=== PATIENT | female | born 1960 | race Caucasian/White ===

== ENCOUNTER → 2018-09-07 | Outpatient (CLI) | payer BC ==
[~2018-09-07] MED LIST: ARTHRITIS PAIN650 M3 PO; ASPIRIN CHEWABL81 MG PO; AZITHROMYC1 GM/PACKE PO; CARTIA XT240 MG PO; CELEBREX400 M1 PO; CLARITIN10 MG PO; DILTIAZEM60 MG PO; EFFEXOR XR150 M1 PO; FLUOXETINE90 MG PO; KEPPRA500 MG PO; LEVOTHYROXIN0.125 MG PO; LEVOTHYROXINE50 MCG PO; LISINOPRIL20 MG PO; MELOXICAM7.5 MG PO; PREDNISONE20 M1 PO; PROZAC20 MG PO; RA CALCIUM CIT PO; SIMVASTATIN10 MG PO; VENLAFAXINE75 M1 PO; VITAMIN C500 M8 PO; VITAMIN D32000 UNIT PO; ZESTORETIC 20-1 EACH PO; ZOCOR40 MG PO
== END | disposition home or self-care (01) ==
LOC: MAMMO 13:32
DX: Z12.31 Encounter for screening mammogram for malignant neoplasm of breast (principal)

== ENCOUNTER 2019-02-11 06:04 | Inpatient (IN) | payer BC ==
[2019-02-11] VITALS (9 sets, daily range): BP systolic 122–134; BP diastolic 70–92
[~2019-02-11] VITALS: Ht 165.1 cm; Wt 75.4 kg
--- NOTE | ~2019-02-11 | WRIGHTHP ---
[place], [place] PATIENT HISTORY AND PHYSICAL EXAM [id number] UNIT #: [id number] ROOM: 422 DOCTOR: TAY COLLINS MD BIRTHDATE: [birth year] DOS: 02/12/2019 HISTORY OF PRESENT ILLNESS: The patient has been admitted to the hospital with history of seizure disorder at home. The patient was getting ready to go to her work and she has possibly seizure and found by her on the floor and called them. She was brought to the Emergency Department. She has been admitted with history of seizure disorder of new onset. The patient never had any seizures before. The patient is not complaining of any headache. No difficulty in breathing, no nausea, no vomiting, no weakness in any part of her body. She is conscious, alert, and oriented at present. ALLERGIES: The patient is allergic to SULFA and AMOXICILLIN. MEDICATIONS: The patient is taking following medications: Levothyroxine 50 mcg daily, ascorbic acid 500 mg daily, meloxicam 7.5 mg daily, Zocor 40 mg daily, Prozac 20 mg daily, Effexor XR 150 mg daily, diltiazem 240 mg daily, calcium tablet and vitamin D twice daily, aspirin 1 tablet daily. PAST MEDICAL HISTORY: Acute bronchitis, past history of cancer of the uterus for which she has undergone hysterectomy, salpingo-oophorectomy, total hysterectomy. SOCIAL HISTORY: The patient drinking quite a lot. She has been advised in the past by me to stop drinking, but she continued. She does not use any drugs except alcohol. She does not smoke. PHYSICAL EXAMINATION: GENERAL: The patient is conscious, alert and oriented, not in any distress at present. VITAL SIGNS: Blood pressure 152/93, pulse 75, respirations 16, temperature 97.7. HEENT: Unremarkable. No facial palsy. Carotid pulses normal. NECK: Veins are not distended. HEART: Regular, no murmur. LUNGS: Clear. No creps or rhonchi. ABDOMEN: Soft. Liver and spleen not palpable. No area of tenderness, no mass palpated. EXTREMITIES: No edema of leg. The patient can move all the 4 limbs without any problem. NEUROLOGIC: No neurological deficit observed. LABORATORY DATA: Her comprehensive metabolic profile on admission showed chloride 111, calcium 7.8. Other values are normal. Troponin level is normal. Lactic acid was 5.5, which was high. CT of the brain shows no evidence of any acute intracranial abnormalities. Chest x-ray was normal. Protime was 10.5. Ethanol level is 43. Ionized calcium was 4.43, slightly low. Lactic acid repeat was 1.3. Vitamin B12 was 212, folic acid 7.86. PTH was 101.01, high. Vitamin D is 47.3. Urine examination showed 1+ blood, 3+ bacteria, indicating urinary tract infection. Urine for drug screening was negative. Repeat CBC showed white count 9900, hemoglobin 11.5, hematocrit 35.2 and MCV 101.1, which [place], [place] PATIENT HISTORY AND PHYSICAL EXAM NAME: ROBERTH MUSA UNIT #: [id number] ROOM: [facility] DOCTOR: TAY COLLINS MD BIRTHDATE: [birth year] was high. MCH 33, which was high, indicating effect of alcohol. Repeat comprehensive metabolic profile showed potassium 2.9, chloride 1.8, calcium 8.2. TSH level is normal. Repeat B12 level is normal. DIAGNOSES: Seizure disorder, new onset, possible to alcohol withdrawal effect is present, arteriosclerotic heart disease, hypertension, hyperlipidemia, hypothyroidism, arthritis and potassium deficiency. PLAN OF TREATMENT: The patient will be observed carefully. She will be started on home medication, started on thiamine 100 mg daily, heparin 40 mg subcutaneous, hydrochlorothiazide 12.5 mg ____ 150 mg daily, lisinopril 20 mg daily, Prozac 20 mg daily, diltiazem CD 240 mg daily, vitamin D 2000 units daily, calcium carbonate 1 tablet twice daily, aspirin 81 mg daily, ascorbic acid 500 mg daily, levetiracetam 500 mg twice daily, simvastatin 40 mg daily, lorazepam 1 mg every 6 hours p.r.n., sodium chloride, multivitamin once a day, thiamine 100 mg daily, folic acid 1 mg daily and the patient's potassium is low, so I will start her on some potassium tablet ____ mEq daily. TAY COLLINS MD CM:HISPHYS:PATIENT HISTORY AND PHYSICAL EXAMINATION [id number] TAY COLLINS MD 02/12/19 1156 interface
--- NOTE | ~2019-02-11 | EKG ---
[place], [place] ELECTROCARDIOGRAM REPORT NAME: ROBERTH MUSA UNIT #: [id number] ROOM: 422 DOCTOR: ABDIRIZAK DRAFT REPORT BIRTHDATE: [birth year] [facility] Test Date: 2019-02-11 Test Time: 06:38:02 Pat Name: ROBERTH MUSA Department: Room: 422 Gender: F [employer]ing Officer: MARY : 1960 Requested By: ANUSHAK ROBERTS Order Number: [id number] Reading MD: Darryl Funes Measurements Intervals [place] Rate: 114 P: 72 [place]: 143 QRS: 67 QRSD: 91 T: -7 QT: 364 QTc: 502 Interpretive Statements Sinus tachycardia Borderline T abnormalities, inferior leads Borderline prolonged QT interval Electronically Signed On 02-12-2019 9:02:05 PDT by Darryl Funes CM:EKGRPT:ELECTROCARDIOGRAM REPORT [id number] ANUSHKA REVELES DRAFT REPORT ANUSHKA ROBERTS MD
[~2019-02-11 06:04] MED LIST changes: -ARTHRITIS PAIN650 M3 PO; -ASPIRIN CHEWABL81 MG PO; -CARTIA XT240 MG PO; -CELEBREX400 M1 PO; -EFFEXOR XR150 M1 PO; -KEPPRA500 MG PO; -LEVOTHYROXINE50 MCG PO; -MELOXICAM7.5 MG PO; -PROZAC20 MG PO; -RA CALCIUM CIT PO; -VENLAFAXINE75 M1 PO; -VITAMIN C500 M8 PO; -VITAMIN D32000 UNIT PO; -ZESTORETIC 20-1 EACH PO; -ZOCOR40 MG PO
[2019-02-11 06:33] LABS: BASO % 0.3 % (0.0-1.0); HEMATOCRIT 38.3 % (37.0-47.0); HEMOGLOBIN 12.7 g/dl (12.0-16.0); LYMPH % 12.6 % (27.0-41.0); MEAN CELL VOLUME 102.1 fl (81.0-99.0); MEAN CORPUSCULAR HGB 33.9 pg (27.0-31.0); MEAN CORPUSCULAR HGB CONC 33.2 g/dl (33.0-37.0); MEAN PLATELET VOLUME 9.7 fl (9.6-12.3); MONO # 0.3 10*3/uL (0.1-1.0); MONO % 4.2 % (3.0-9.0); NEUT # 6.3 10*3/uL (2.3-7.9); NEUT % 82.4 % (47.0-73.0); PLATELET COUNT AUTOMATED 379 10*3/uL (130-400); RED BLOOD COUNT 3.75 10*6/uL (4.10-5.10); RED CELL DISTRI WIDTH 14.5 % (0-14.5); WHITE BLOOD COUNT 7.7 10*3/uL (4.8-10.8)
[2019-02-11] MEDS ORDERED: LEVOTHYROXINE50 MCG PO (06:39)
[2019-02-11 06:48] LABS: ACT PARTIAL THROMBO TIME 23.1 SECONDS (20.0-32.1); INTERNATIONAL NORM RATIO 0.9 (2.0-3.5)
[2019-02-11 06:52] LABS: ALBUMIN 3.9 gm/dl (3.1-4.5); ALKALINE PHOSPHATASE 83 U/L (45-117); BUN 17 mg/dl (7-24); CHLORIDE 111 mmol/L (98-107); CREATININE 0.76 mg/dL (0.55-1.02); POTASSIUM 3.8 mmol/L (3.5-5.1); SGOT/AST 29 IU/L (3-35); SGPT/ALT 36 U/L (12-78); SODIUM 144 mmol/L (136-145); TOTAL PROTEIN 7.5 gm/dL (6.4-8.2)
[2019-02-11 06:53] LABS: TROPONIN I < 0.015 ng/ml (<0.045)
[2019-02-11] MEDS ORDERED: VITAMIN C500 M8 PO (06:55)
[2019-02-11] MEDS ORDERED: MELOXICAM7.5 MG PO (06:55)
[2019-02-11] MEDS ORDERED: PROZAC20 MG PO (06:56)
[2019-02-11] MEDS ORDERED: ZOCOR40 MG PO (06:56)
[2019-02-11] MEDS ORDERED: EFFEXOR XR150 M1 PO (06:56)
[2019-02-11] MEDS ORDERED: CARTIA XT240 MG PO (06:57)
[2019-02-11] MEDS ORDERED: VENLAFAXINE75 M1 PO (06:57)
[2019-02-11] MEDS ORDERED: RA CALCIUM CIT PO (06:58)
[2019-02-11] MEDS ORDERED: ASPIRIN CHEWABL81 MG PO (06:58)
[2019-02-11] MEDS ORDERED: VITAMIN D32000 UNIT PO (06:59)
[2019-02-11] MEDS ORDERED: ZESTORETIC 20-1 EACH PO (07:00)
[2019-02-11] MEDS ORDERED: ARTHRITIS PAIN650 M3 PO (07:00)
[2019-02-11] MEDS ORDERED: CELEBREX400 M1 PO (07:01)
[2019-02-11 10:45] LABS: VITAMIN D, 25-HYDROXY 47.3 ng/mL (30-100)
[2019-02-11 10:46] LABS: PTH INTACT 101.1 pg/mL (18.5-88.0)
[2019-02-11 11:51] LABS: BILIRUBIN NEGATIVE (NEGATIVE); BLOOD 1+ (NEGATIVE); CLARITY CLOUDY (CLEAR); COLOR YELLOW (YELLOW); GLUCOSE NEGATIVE (NEGATIVE); KETONE TRACE (NEGATIVE); LEUKO ESTERASE TRACE (NEGATIVE); NITRITE POSITIVE (NEGATIVE); PH 5.5 (5.0-9.0); SPECIFIC GRAVITY >= 1.030 (1.005-1.030); UROBILINOGEN 0.2 E.U./dl (0.2-1.0)
[2019-02-11 11:58] LABS: BACTERIA 3+; EPITHELIAL CELLS 31-40; MUCOUS 1+; RBC 21-30 rbc/hpf (0-2); WBC 16-20 wbc/hpf (0-5)
[2019-02-11 11:59] LABS: URINE AMPHETAMINES < 1000 (1000ng/ml); URINE BARBITURATES < 200 (200ng/ml); URINE BENZODIAZEPINES < 200 (200ng/ml); URINE CANNABINOIDS (THC) < 50 (50ng/ml); URINE COCAINE < 300 (300ng/ml); URINE METHADONE < 300 (300ng/ml); URINE OPIATES < 300 (300ng/ml)
[2019-02-11 12:01] LABS: URINE PHENCYCLIDINE < 25 (25ng/ml)
[2019-02-12] VITALS: BP 122/97
[2019-02-12 06:25] VITALS: BP 132/80
[2019-02-12 07:02] LABS: BASO % 0.3 % (0.0-1.0); EOS % 0.3 % (1.0-4.0); HEMATOCRIT 35.2 % (37.0-47.0); HEMOGLOBIN 11.5 g/dl (12.0-16.0); LYMPH % 20.1 % (27.0-41.0); MEAN CELL VOLUME 101.1 fl (81.0-99.0); MEAN CORPUSCULAR HGB CONC 32.7 g/dl (33.0-37.0); MEAN PLATELET VOLUME 9.5 fl (9.6-12.3); MONO # 0.9 10*3/uL (0.1-1.0); NEUT # 6.9 10*3/uL (2.3-7.9); NEUT % 69.9 % (47.0-73.0); PLATELET COUNT AUTOMATED 323 10*3/uL (130-400); RED BLOOD COUNT 3.48 10*6/uL (4.10-5.10); RED CELL DISTRI WIDTH 14.8 % (0-14.5); WHITE BLOOD COUNT 9.9 10*3/uL (4.8-10.8)
[2019-02-12 07:32] LABS: ALBUMIN 3.4 gm/dl (3.1-4.5); ALKALINE PHOSPHATASE 73 U/L (45-117); BUN 13 mg/dl (7-24); CHLORIDE 108 mmol/L (98-107); CREATININE 0.62 mg/dL (0.55-1.02); POTASSIUM 2.9 mmol/L (3.5-5.1); SGOT/AST 33 IU/L (3-35); SGPT/ALT 32 U/L (12-78); SODIUM 139 mmol/L (136-145); TOTAL PROTEIN 6.8 gm/dL (6.4-8.2)
[2019-02-12 08:00] VITALS: BP 152/93
[2019-02-12 12:00] VITALS: BP 110/70
[2019-02-12 16:16] VITALS: BP 134/85
[2019-02-12 20:00] VITALS: BP 136/89
[2019-02-13] VITALS: BP 134/82
[2019-02-13 08:00] VITALS: BP 133/84
[2019-02-13 12:00] VITALS: BP 127/76
[2019-02-13 14:58] LABS: BUN 8 mg/dl (7-24); CHLORIDE 101 mmol/L (98-107); CREATININE 0.69 mg/dL (0.55-1.02); POTASSIUM 3.5 mmol/L (3.5-5.1); SODIUM 134 mmol/L (136-145)
[2019-02-13 16:00] VITALS: BP 117/70
[2019-02-13 20:00] VITALS: BP 143/46
[2019-02-14] VITALS: BP 133/83
[2019-02-14 06:37] LABS: BUN 11 mg/dl (7-24); CHLORIDE 104 mmol/L (98-107); CREATININE 0.68 mg/dL (0.55-1.02); POTASSIUM 3.8 mmol/L (3.5-5.1); SODIUM 136 mmol/L (136-145)
[2019-02-14 08:00] VITALS: BP 130/80
[2019-02-14 12:00] VITALS: BP 110/73
[2019-02-14 16:00] VITALS: BP 105/70
[2019-02-14 20:00] VITALS: BP 106/57
[2019-02-15] VITALS: BP 118/69
[2019-02-15 07:05] LABS: BASO % 0.4 % (0.0-1.0); EOS # 0.4 10*3/uL (0.0-0.4); EOS % 4.6 % (1.0-4.0); HEMATOCRIT 39.9 % (37.0-47.0); HEMOGLOBIN 13.4 g/dl (12.0-16.0); LYMPH # 1.7 10*3/uL (1.3-4.4); LYMPH % 17.5 % (27.0-41.0); MEAN CELL VOLUME 100.3 fl (81.0-99.0); MEAN CORPUSCULAR HGB 33.7 pg (27.0-31.0); MEAN CORPUSCULAR HGB CONC 33.6 g/dl (33.0-37.0); MONO # 0.9 10*3/uL (0.1-1.0); MONO % 9.8 % (3.0-9.0); NEUT # 6.5 10*3/uL (2.3-7.9); NEUT % 67.3 % (47.0-73.0); PLATELET COUNT AUTOMATED 364 10*3/uL (130-400); RED BLOOD COUNT 3.98 10*6/uL (4.10-5.10); RED CELL DISTRI WIDTH 14.4 % (0-14.5); WHITE BLOOD COUNT 9.6 10*3/uL (4.8-10.8)
[2019-02-15 07:22] LABS: BUN 14 mg/dl (7-24); CHLORIDE 103 mmol/L (98-107); CREATININE 0.76 mg/dL (0.55-1.02); POTASSIUM 3.8 mmol/L (3.5-5.1); SODIUM 136 mmol/L (136-145)
[2019-02-15 08:00] VITALS: BP 116/70
[2019-02-15 12:00] VITALS: BP 112/72
[2019-02-15] MEDS ORDERED: KEPPRA500 MG PO (13:54)
== END 2019-02-15 14:30 | disposition home or self-care (01) | DRG 101 ==
LOC: ED 06:04 → EDHOLD 07:45 → 4E 07:45
PROVIDERS: Emergency Medicine; Emergency Medicine Emergency Medical Services; Internal Medicine Nephrology; ADMIT Internal Medicine
DX: G40.509 Epileptic seizures related to external causes, not intractable, without status epilepticus (principal); N39.0 Urinary tract infection, site not specified; R47.01 Aphasia; F10.239 Alcohol dependence with withdrawal, unspecified; E03.9 Hypothyroidism, unspecified; E78.5 Hyperlipidemia, unspecified; M19.90 Unspecified osteoarthritis, unspecified site; E87.6 Hypokalemia; E83.51 Hypocalcemia; E53.8 Deficiency of other specified B group vitamins; B96.20 Unspecified Escherichia coli [E. coli] as the cause of diseases classified elsewhere; Z88.2 Allergy status to sulfonamides; Z88.1 Allergy status to other antibiotic agents; Z90.710 Acquired absence of both cervix and uterus; Z90.721 Acquired absence of ovaries, unilateral

== ENCOUNTER → 2019-03-14 | Outpatient (CLI) | payer BC ==
[~2019-03-14] MED LIST changes: +ARTHRITIS PAIN650 M3 PO; +ASPIRIN CHEWABL81 MG PO; +CARTIA XT240 MG PO; +CELEBREX400 M1 PO; +EFFEXOR XR150 M1 PO; +KEPPRA500 MG PO; +LEVOTHYROXINE50 MCG PO; +MELOXICAM7.5 MG PO; +PROZAC20 MG PO; +RA CALCIUM CIT PO; +VENLAFAXINE75 M1 PO; +VITAMIN C500 M8 PO; +VITAMIN D32000 UNIT PO; +ZESTORETIC 20-1 EACH PO; +ZOCOR40 MG PO
--- NOTE | ~2019-03-14 | EEG ---
[place], [place] ELECTROENCEPHALOGRAM REPORT NAME: ROBERTH MUSA UNIT #: [id number] ROOM: DOCTOR: WILDA PATRICIA MD, JR DOS: 03/14/2019 This 58-year-old woman, on levothyroxine, meloxicam, simvastatin, fluoxetine, Effexor, diltiazem, aspirin, and Keppra, displayed the following underlying rhythms -- well organized, synchronous, 20 Hz, 10 microvolt beta rhythms in both anterior and posterior regions. In addition, 10 Hz, 20 microvolt alpha rhythms are noted in both posterior regions. There was symmetrical attenuation of the posterior alpha rhythms with eye opening. Two minutes of poor hyperventilation produced no abnormalities. There was no driving to photic stimulation. The patient did not fall asleep throughout this recording. The patient spent most of her time in this tracing and beta rhythms. Throughout this tracing, there were no focal abnormalities or epileptiform discharges. IMPRESSION: Normal awake EEG. WILDA PATRICIA MD CM:EEG:ELECTROENCEPHALOGRAM REPORT [id number] WLIDA PATRICIA MD, JR
== END | disposition home or self-care (01) ==
LOC: CP 12:00
DX: G40.909 Epilepsy, unspecified, not intractable, without status epilepticus (principal)

== ENCOUNTER 2020-04-26 15:22 | Emergency (ER) | payer BC ==
[~2020-04-26] VITALS: Ht 162.5 cm; Wt 72.6 kg
[2020-04-26] MEDS ORDERED: NORCO 5-325 TA1 EACH PO (17:03)
== END 2020-04-26 17:58 | disposition home or self-care (01) ==
LOC: ED 15:22
DX: S52.532A Colles' fracture of left radius, initial encounter for closed fracture (principal); S93.402A Sprain of unspecified ligament of left ankle, initial encounter; I10 Essential (primary) hypertension; F17.200 Nicotine dependence, unspecified, uncomplicated; Z88.2 Allergy status to sulfonamides; Z88.8 Allergy status to other drugs, medicaments and biological substances; Z79.899 Other long term (current) drug therapy; Z79.82 Long term (current) use of aspirin; X58.XXXA Exposure to other specified factors, initial encounter; Y93.89 Activity, other specified; Y92.89 Other specified places as the place of occurrence of the external cause; Y99.8 Other external cause status

== ENCOUNTER → 2023-02-02 | Outpatient (CLI) | payer BC ==
[~2023-02-02] MED LIST changes: +NORCO 5-325 TA1 EACH PO
== END | disposition home or self-care (01) ==
LOC: MAMMO 01:37
PROVIDERS: ATTEND Internal Medicine
DX: Z12.31 Encounter for screening mammogram for malignant neoplasm of breast (principal)

== ENCOUNTER → 2023-07-29 | Outpatient (CLI) | payer BC ==
[2023-07-29 11:55] LABS: ALKALINE PHOSPHATASE 95 U/L (46-116); BUN 17 mg/dl (9-23); CHLORIDE 108 mmol/L (98-107); POTASSIUM 3.8 mmol/L (3.4-5.1); SGPT/ALT 16 U/L (5-49); TOTAL PROTEIN 7.8 gm/dL (6.0-8.0)
== END | disposition home or self-care (01) ==
LOC: US 10:19
PROVIDERS: ATTEND Internal Medicine
DX: I10 Essential (primary) hypertension (principal); Z71.41 Alcohol abuse counseling and surveillance of alcoholic

== ENCOUNTER 2023-10-19 00:30 | Emergency (ER) | payer BC ==
[~2023-10-19] VITALS: Ht 167.6 cm; Wt 77.1 kg
[2023-10-19 00:50] LABS: BASO % 0.5 % (0.0-1.0); EOS # 0.1 10*3/uL (0.0-0.4); EOS % 1.2 % (1.0-4.0); HEMATOCRIT 44.5 % (37.0-47.0); LYMPH # 2.8 10*3/uL (1.3-4.4); LYMPH % 36.8 % (27.0-41.0); MEAN CELL VOLUME 99.1 fl (81.0-99.0); MEAN CORPUSCULAR HGB 32.7 pg (27.0-31.0); MEAN PLATELET VOLUME 9.6 fl (9.6-12.3); MONO # 0.6 10*3/uL (0.1-1.0); MONO % 7.6 % (3.0-9.0); NEUT # 4.1 10*3/uL (2.3-7.9); NEUT % 53.6 % (47.0-73.0); PLATELET COUNT AUTOMATED 430 10*3/uL (130-400); RED BLOOD COUNT 4.49 10*6/uL (4.10-5.10); RED CELL DISTRI WIDTH 13.2 % (0-14.5); WHITE BLOOD COUNT 7.6 10*3/uL (4.8-10.8)
[2023-10-19 01:01] LABS: BILIRUBIN Negative (Negative); BLOOD Negative (Negative); CLARITY Clear (Clear); COLOR Yellow (Yellow); GLUCOSE Negative (Negative); KETONE Negative (Negative); LEUKO ESTERASE Negative (Negative); NITRITE Negative (Negative); PH 6.5 (4.5-8.0); SPECIFIC GRAVITY <= 1.005 (1.001-1.030); UROBILINOGEN 0.2 E.U./dl (0.0-1.0)
[2023-10-19 01:12] LABS: ALKALINE PHOSPHATASE 99 U/L (46-116); BUN 10 mg/dl (9-23); CHLORIDE 109 mmol/L (98-107); ETHYL ALCOHOL 144.4 mg/dl (<3); POTASSIUM 3.5 mmol/L (3.4-5.1); SGPT/ALT 17 U/L (5-49); TOTAL PROTEIN 7.3 gm/dL (6.0-8.0)
[2023-10-19 01:13] LABS: RBC 0-2 rbc/hpf (0-2)
[2023-10-19 01:19] LABS: URINE AMPHETAMINES Negative (1000ng/ml); URINE BARBITURATES Negative (200ng/ml); URINE BENZODIAZEPINES Negative (200ng/ml); URINE CANNABINOIDS (THC) Negative (50ng/ml); URINE COCAINE Negative (300ng/ml); URINE METHADONE Negative (300ng/ml); URINE OPIATES Negative (300ng/ml); URINE PHENCYCLIDINE Negative (25ng/ml)
== END 2023-10-19 03:54 | disposition home or self-care (01) ==
LOC: ED 00:30
PROVIDERS: Internal Medicine
DX: Z63.8 Other specified problems related to primary support group (principal); F10.129 Alcohol abuse with intoxication, unspecified; I10 Essential (primary) hypertension; Z88.2 Allergy status to sulfonamides; Z88.1 Allergy status to other antibiotic agents; Z90.710 Acquired absence of both cervix and uterus; Z98.890 Other specified postprocedural states; Y90.6 Blood alcohol level of 120-199 mg/100 ml

== ENCOUNTER → 2024-02-07 | Outpatient (CLI) | payer BC | END | disposition home or self-care (01) | LOC: MAMMO 08:00 | PROVIDERS: ATTEND Internal Medicine | DX: Z12.31 Encounter for screening mammogram for malignant neoplasm of breast (principal) ==

== ENCOUNTER → 2025-03-05 | Outpatient (CLI) | payer MEDICARE, BC, OTHER | END | disposition home or self-care (01) | LOC: MAMMO 07:58 | PROVIDERS: ATTEND Internal Medicine | DX: Z12.31 Encounter for screening mammogram for malignant neoplasm of breast (principal); R92.323 Mammographic fibroglandular density, bilateral breasts ==